=== PATIENT | female | born 1980 | race Caucasian/White ===

== ENCOUNTER 2017-12-09 11:32 | Emergency (ER) | payer SELFPAY ==
[~2017-12-09] VITALS: Ht 165.1 cm; Wt 88.9 kg
[~2017-12-09 11:32] MED LIST: BUPROPION XL150 MG PO; Feosol PO; LEVAQUIN500 MG PO; MOTRIN600 MG PO; Motrin PO; NAPROSYN500 MG PO; PERCOCET 5/31 TABLET PO; PERCOCET 5/325MG PO; PREMARIN1.25 MG PO; Phenergan PO; SKELAXIN800 MG PO
[2017-12-09 14:51] VITALS: BP 127/73
== END 2017-12-09 14:52 | disposition home or self-care (01) ==
LOC: EME 11:32
DX: R09.82 Postnasal drip (principal); J30.2 Other seasonal allergic rhinitis; Z88.5 Allergy status to narcotic agent; Z88.2 Allergy status to sulfonamides
CPT/HCPCS: 87651 90; 99281; 99283; J1100